=== PATIENT | male | born 1980 | race Caucasian/White ===

== ENCOUNTER 2017-03-08 16:41 | Inpatient (IN) | payer OTHER ==
[~2017-03-08] VITALS: Ht 172.7 cm; Wt 105.0 kg
[2017-03-08 16:43] VITALS: Ht 172.7 cm; Wt 105.0 kg
--- NOTE | 2017-03-08 16:52 | ERD ---
ER Documentation Chief Complaint Chief Complaint BIB EMS for c/o L leg pain; denies trauma HPI The patient is a 36-year-old male, presenting with severe low back pain for 1 day, worse tonight, unable to ambulate. He denies fecal/urinary incontinence, fever, neck pain, chest pain, nausea, vomiting with his, diarrhea, constipation. He does not have any history of IV drug abuse, smoke and drinks socially Past medical history: Diabetes mellitus Past surgical history: None ROS All systems reviewed and are negative except as per history of present illness. Allergies Allergies: Coded Allergies: No Known Allergy (Unverified , 03/08/17) Physical Exam Vitals Vital Signs Date Time Temp Pulse Resp B/P Pulse Ox O2 Delivery O2 Flow Rate FiO2 03/08/17 18:45 98.1 96 20 142/77 100 Room Air 03/08/17 16:43 98.1 103 19 138/81 100 Physical Exam Const: No acute distress.in pain Head: Atraumatic. Eyes: Normal Conjunctiva. ENT: Normal External Ears, Nose and Mouth. Neck: Full range of motion. No meningismus. Resp: Clear to auscultation bilaterally. Cardio: Regular rate and rhythm. Abd: Soft, non distended, normal bowel sounds, non tender. Skin: No petechiae or rashes. Back: No midline or flank tenderness. Ext: No cyanosis, or edema. Neur: Awake and alert. Limited due to his condition, positive for straight leg raising test Psych: Normal Mood and Affect. Result Diagram: 03/08/17 1700 03/08/17 1700 Results 24 hrs Laboratory Tests Test 03/08/17 17:00 03/08/17 18:00 03/08/17 18:03 White Blood Count 12.510^3/ul Red Blood Count 6.1510^6/ul Hemoglobin 17.6g/dl Hematocrit 50.4% Mean Corpuscular Volume 82.0fl Mean Corpuscular Hemoglobin 28.6pg Mean Corpuscular Hemoglobin Concent 34.9g/dl Red Cell Distribution Width 12.5% Platelet Count 77022^3/UL Mean Platelet Volume 10.0fl Neutrophils % 67.9% Lymphocytes % 19.2% Monocytes % 7.1% Eosinophils % 4.7% Basophils % 0.8% Nucleated Red Blood Cells % 0.0/100WBC Neutrophils # 8.510^3/ul Lymphocytes # 2.410^3/ul Monocytes # 0.910^3/ul Eosinophils # 0.610^3/ul Basophils # 0.110^3/ul Nucleated Red Blood Cells # 0.010^3/ul Sodium Level 136mmol/L Potassium Level 4.4mmol/L Chloride Level 101mmol/L Carbon Dioxide Level 24mmol/L Anion Gap 15 Blood Urea Nitrogen 11mg/dl Creatinine 0.75mg/dl Glucose Level 265mg/dl Calcium Level 9.4mg/dl Ethyl Alcohol Level < 10.0mg/dl Urine Opiates Screen Positive Urine Barbiturates Negative Urine Amphetamines Screen POSITIVE Urine Benzodiazepines Screen Negative Urine Cocaine Screen Positive Urine Cannabinoids Negative Bedside Urine pH (LAB) 6.0 Bedside Urine Protein (LAB) 2+ Bedside Urine Glucose (UA) 0.50% Bedside Urine Ketones (LAB) Trace Bedside Urine Blood Trace-lysed Bedside Urine Nitrite (LAB) Negative Bedside Urine Leukocyte Esterase (L Negative Current Medications Medications (Trade) Dose Ordered Sig/Shimon Route PRN Reason Start Time Stop Time Status Last Admin Dose Admin Hydromorphone HCl (Dilaudid) 1 mg ONCE STAT IV 03/08/17 16:55 03/08/17 16:57 DC 03/08/17 17:08 Ketorolac Tromethamine (Toradol) 30 mg ONCE STAT IV 03/08/17 17:27 03/08/17 17:28 DC 03/08/17 17:33 Hydromorphone HCl (Dilaudid) 1 mg ONCE STAT IV 03/08/17 18:11 03/08/17 18:13 DC 03/08/17 18:43 Procedures/[place] [address] Radiology Main Line: [phone] DIAGNOSTIC IMAGING REPORT Patient: CLAYTON BRUNO : 1980 Age: 36 Sex: M MR #: [id number] DOS: 03/08/17 1655 Ordering MD: ISAAC VERGARA MD Location: E/R Room/Bed: PROCEDURE: CT lumbar spine without contrast CLINICAL INDICATION: Severe low back and left hip pain. TECHNIQUE: CT scan of the lumbar spine was performed on a high-resolution multi-detector CT scanner. No IV contrast was administered. Coronal and sagittal reformatted images were obtained from the axial source images. Images were reviewed on a high-resolution PACS workstation. Exam CTDI = 41.97 mGy and the DLP = 1136.61 mGy-cm. DICOM images are available. One or more of the following dose reduction techniques were used: Automated exposure control. Adjustment of the mA and/or kV according to patient size. Use of iterative reconstruction technique. COMPARISON: None available FINDINGS: There is normal lumbar lordosis. Alignment remains intact. No acute fracture or dislocation is seen. There is chronic-appearing minimal anterior height loss of L1 and L2. There is no retropulsion. The remainder of the vertebral body heights are maintained. Posterior elements structures are intact. The paraspinous soft tissues are unremarkable. No mass, hematoma, or other soft tissue abnormality is seen. T12-L1 through L2-L3: The disc heights are maintained. The central canal and bilateral neural foramina are adequately patent. L3-L4: The disc height is maintained. There is mild disc bulge. The central canal and bilateral neural foramina are adequately patent. L4-L5: There is mild disc height loss. There is a prominent central disc protrusion indenting the ventral thecal sac with mild central canal stenosis. There is mild facet arthropathy. There is mild bilateral neural foraminal stenosis. L5-S1: There is mild disc height loss. Left foraminal/extraforaminal disc extrusion with probable impingement on the traversing left S1 nerve root. There is severe left neural foraminal stenosis with probable impingement on the exiting left L5 nerve root. IMPRESSION: 1. No acute fracture or traumatic malalignment. 2. Left foraminal/extraforaminal disc extrusion at L5-S1 with probable impingement on the exiting left L5 and traversing left S1 nerve roots. 3. Mild discogenic disease at L4-L5. RPTAT: HHO .Sharmin Fisher MD, Date Time Electronically viewed and signed by .Sharmin Fisher MD, on 03/08/2017 18:01 .O/ CC: ISAAC VERGARA MD MEDICAL MAKING DECISION: The patient is 36-year-old male, presenting with acute intractable back pain due to disc disease. He was treated with Dilaudid 1 mg IV 2 and Toradol 30 IV 1 for pain with good response. However he is unable to ambulate independently. The differential diagnoses considered include but are not limited to caudal equina syndrome, spinal abscess, DJD, diskitis, lumbar radiculopathy. Departure Diagnosis: Primary Impression: Intractable back pain Condition: Stable Comments I discussed the findings with the patient. I discussed the patient with the on- call hospitalist Dr. Turcios at 6:50 PM for admission and MRI evaluation. who was made aware of the lab, the treatment, the patient condition. The patient is admitted to [facility] Disclaimer: Inadvertent spelling and grammatical errors are likely due to EHR/ dictation software use and do not reflect on the overall quality of patient care. Also, please note that the electronic time recorded on this note does not necessarily reflect the actual time of the patient encounter. ISAAC VERGARA MD Mar 08, 2017 16:52
[2017-03-08] MEDS ORDERED: HYDROmorphONE 1 MG/ML SYG IV STA ×2 (16:55→18:11)
[2017-03-08 17:15] LABS: BASOPHIL # 0.1 10^3/ul (0.0-0.1); BASOPHILS % 0.8 % (0.0-2.0); EOSINOPHILS # 0.6 10^3/ul (0.0-0.5); EOSINOPHILS % 4.7 % (0.0-7.0); HEMATOCRIT 50.4 % (42.0-52.0); HEMOGLOBIN 17.6 g/dl (14.0-18.0); LYMPHOCYTES # 2.4 10^3/ul (0.8-2.9); LYMPHOCYTES % 19.2 % (15.0-51.0); MEAN CORPUSCULAR HEMOGLOBIN 28.6 pg (29.0-33.0); MEAN CORPUSCULAR HGB CONC 34.9 g/dl (32.0-37.0); MONOCYTE # 0.9 10^3/ul (0.3-0.9); MONOCYTES % 7.1 % (0.0-11.0); NEUTROPHIL # 8.5 10^3/ul (1.6-7.5); NEUTROPHILS % 67.9 % (39.0-77.0); PLATELET COUNT 373 10^3/UL (140-415); RED BLOOD COUNT 6.15 10^6/ul (4.70-6.10); RED CELL DISTRIBUTION WIDTH 12.5 % (11.5-14.5); WHITE BLOOD COUNT 12.5 10^3/ul (4.8-10.8)
[2017-03-08] MEDS ORDERED: KETOROLAC 30 MG INJ IV STA (17:27)
[2017-03-08 17:35] LABS: ANION GAP 15 (8-16); BLOOD UREA NITROGEN 11 mg/dl (7-20); CALCIUM 9.4 mg/dl (8.4-10.2); CARBON DIOXIDE 24 mmol/L (21-31); CHLORIDE 101 mmol/L (97-110); CREATININE 0.75 mg/dl (0.61-1.24); GLUCOSE 265 mg/dl (70-220); POTASSIUM 4.4 mmol/L (3.5-5.1); SODIUM 136 mmol/L (135-144)
[2017-03-08 17:41] LABS: ETHANOL < 10.0 mg/dl
--- NOTE | 2017-03-08 18:02 | RADRPT ---
PROCEDURE: CT lumbar spine without contrast CLINICAL INDICATION: Severe low back and left hip pain. TECHNIQUE: CT scan of the lumbar spine was performed on a high-resolution multi-detector CT scanne r. No IV contrast was administered. Coronal and sagittal reformatted images were obtained from the axial source images. Images were reviewed on a high-resolution PACS workstation. Exam CTDI = 41.97 mGy and the DLP = 1136.61 mGy-cm. DICOM images are available. One or more of the following dose reduction techniques were used: Automated exposure control. Adjustment of the mA and/or kV according to patient size. Use of iterative reconstruction technique. COMPARISON: None available FINDINGS: There is normal lumbar lordosis. Alignment remains intact. No acute fracture or dislocation is see n. There is chronic-appearing minimal anterior height loss of L1 and L2. There is no retropulsion. The remainder of the vertebral body heights are maintained. Posterior elements structures are intact . The paraspinous soft tissues are unremarkable. No mass, hematoma, or other soft tissue abnormalit y is seen. T12-L1 through L2-L3: The disc heights are maintained. The central canal and bilateral neural lori hai are adequately patent. L3-L4: The disc height is maintained. There is mild disc bulge. The central canal and bilateral boris ral foramina are adequately patent. L4-L5: There is mild disc height loss. There is a prominent central disc protrusion indenting the v entral thecal sac with mild central canal stenosis. There is mild facet arthropathy. There is mild b ilateral neural foraminal stenosis. L5-S1: There is mild disc height loss. Left foraminal/extraforaminal disc extrusion with probable i mpingement on the traversing left S1 nerve root. There is severe left neural foraminal stenosis with probable impingement on the exiting left L5 nerve root. IMPRESSION: 1. No acute fracture or traumatic malalignment. 2. Left foraminal/extraforaminal disc extrusion at L5-S1 with probable impingement on the exiting le ft L5 and traversing left S1 nerve roots. 3. Mild discogenic disease at L4-L5. RPTAT: MORRIS .Sharmin Fisher MD, Date Time Electronically viewed and signed by .Sharmin Fisher MD, MD on 03/08/2017 18:01 .O/
[2017-03-08 18:05] LABS: URINE BLOOD (Dip) POC Trace-lysed (NEGATIVE)
[2017-03-08 18:39] LABS: BARBITURATES Negative (NEGATIVE); BENZODIAZEPINES Negative (NEGATIVE); CANNABINOIDS Negative (NEGATIVE); COCAINE Positive (NEGATIVE); OPIATES Positive (NEGATIVE)
[2017-03-08 21:04] VITALS: TEMP 98.1
[2017-03-08 21:26] VITALS: BP 156/89; RESP 20
[2017-03-08] MEDS ORDERED: FENTAnyl 50 MCG/ML VIAL IV ONE (21:30)
[2017-03-08 21:46] VITALS: BP 154/80; PULSE 95; RESP 20
[2017-03-08] MEDS ORDERED: DEXTROSE 50% 50 ML SYRINGE IV PRN ×2 (22:15)
[2017-03-08] MEDS ORDERED: GLUCAGON 1 MG INJ IM PRN (22:15)
[2017-03-08] MEDS ORDERED: GLUCOSE GEL 15 GRAM TUBE BUCCAL PRN (22:15)
[2017-03-08] MEDS ORDERED: GLUCOSE GEL 15 GRAM TUBE PO PRN ×2 (22:15)
[2017-03-09] MEDS ORDERED: HYDROmorphONE 1 MG/ML SYG IV STA (01:49)
[2017-03-09] MEDS: INSULIN ASPART [NOVOLOG] 3 ML PEN SC SCH ×7 (01:56→21:00)
[2017-03-09 02:01] VITALS: BP 142/85; PULSE 90; RESP 21
[2017-03-09] MEDS: ACCU-CHEK XX SCH (02:08)
[2017-03-09] MEDS ORDERED: DEXAMETHASONE 4 MG/ML 1 ML INJ IV STA (03:33)
[2017-03-09 05:45] LABS: BASOPHIL # 0.1 10^3/ul (0.0-0.1); EOSINOPHILS # 0.8 10^3/ul (0.0-0.5); EOSINOPHILS % 6.8 % (0.0-7.0); HEMATOCRIT 48.3 % (42.0-52.0); HEMOGLOBIN 16.9 g/dl (14.0-18.0); LYMPHOCYTES # 3.2 10^3/ul (0.8-2.9); LYMPHOCYTES % 28.4 % (15.0-51.0); MEAN CORPUSCULAR HEMOGLOBIN 29.2 pg (29.0-33.0); MEAN CORPUSCULAR VOLUME 83.6 fl (82.0-101.0); MEAN PLATELET VOLUME 10.2 fl (7.4-10.4); NEUTROPHIL # 6.2 10^3/ul (1.6-7.5); NEUTROPHILS % 54.4 % (39.0-77.0); PLATELET COUNT 351 10^3/UL (140-415); RED BLOOD COUNT 5.78 10^6/ul (4.70-6.10); RED CELL DISTRIBUTION WIDTH 12.9 % (11.5-14.5); WHITE BLOOD COUNT 11.4 10^3/ul (4.8-10.8)
[2017-03-09] MEDS ORDERED: HYDROmorphONE 2 MG/ML SYG IV STA (05:46)
[2017-03-09] MEDS ORDERED: HYDROmorphONE 2 MG/ML SYG ONE (05:49)
[2017-03-09 06:20] LABS: ALBUMIN 3.7 g/dl (3.3-4.9); ALBUMIN/GLOBULIN RATIO 1.15; BILIRUBIN,INDIRECT 0.4 mg/dl (0-1.1); BILIRUBIN,TOTAL 0.4 mg/dl (0.2-1.3); CALCIUM 9.2 mg/dl (8.4-10.2); CREATININE 0.87 mg/dl (0.61-1.24); POTASSIUM 4.2 mmol/L (3.5-5.1); TOTAL PROTEIN 6.9 g/dl (6.1-8.1)
[2017-03-09 07:49] VITALS: BP 169/101; RESP 18
--- NOTE | 2017-03-09 08:50 | HP ---
Date/Time of Note Date/Time of Note DATE: 03/09/17 TIME: 08:45 Assessment/Plan VTE Prophylaxis VTE Prophylaxis Intervention: SCD's Lines/Catheters IV Catheter Type (from Nrsg): Saline Lock Assessment/Plan Assessment/Plan 1. Disc extrusion at L5-S1 with probable impingement -Decadron -Neurosurgery consult -Pain management 2. Back pain, secondary to above -See #1 3. Diabetes, - check A1c -Insulin while in-house HPI/ROS Admit Date/Time Admit Date/Time Mar 08, 2017 at 18:55 Hx of Present Illness This is a 36-year-old male with a history of diabetes who presented to the ER complaining of back pain. Pain is started today. It was of sudden onset, left- sided and it radiates down his left leg. Denied trauma or falling down. Denied bladder or bowel incontinence. Lumbar CT showed left foraminal/extraforaminal disc extrusion at L5-S1 with probable impingement on the exiting left L5 and traversing left S1 nerve roots. PMH/Family/Social Social History Smoking Status: Light tobacco smoker Exam/Review of Systems Vital Signs Vitals Vital Signs Date Time Temp Pulse Resp B/P Pulse Ox O2 Delivery O2 Flow Rate FiO2 03/09/17 07:49 98.0 81 18 169/101 98 03/09/17 02:01 Room Air Intake and Output 03/08/17 03/08/17 03/09/17 14:59 22:59 06:59 Intake Total 480 ml Output Total 800 ml Balance -320 ml Exam Constitutional: alert, distress, oriented Head: atraumatic, normocephalic Eyes: EOMI, PERRL Respiratory: clear to auscultation, normal air movement Cardiovascular: nl pulses, regular rate and rhythm Gastrointestinal: non-tender, soft Musculoskeletal: other (Tenderness in the lower back. No obvious deformity) Extremities: normal pulses Labs Result Diagram: 03/09/1743403/09/17434 Medications Medications Current Medications Diagnostic Test (Pha) (Accu-Chek) 1 ea 02 XX Last administered on 03/09/17t 02 :08; Admin Dose 1 EA; Start 03/09/17 at 02:00 Miscellaneous Information 1 ea NOTE XX ; Start 03/08/17 at 22:15 Glucose (Glutose) 15 gm Q15M PRN PO DECREASED GLUCOSE; Start 03/08/17 at 22:15 Glucose (Glutose) 22.5 gm Q15M PRN PO DECREASED GLUCOSE; Start 03/08/17 at 22: 15 Dextrose (D50w Syringe) 25 ml Q15M PRN IV DECREASED GLUCOSE; Start 03/08/17 at 22:15 Dextrose (D50w Syringe) 50 ml Q15M PRN IV DECREASED GLUCOSE; Start 03/08/17 at 22:15 Glucagon (Glucagen) 1 mg Q15M PRN IM DECREASED GLUCOSE; Start 03/08/17 at 22: 15 Glucose (Glutose) 15 gm Q15M PRN BUCCAL DECREASED GLUCOSE; Start 03/08/17 at 22:15 Dexamethasone (Decadron) 6 mg Q6 IV ; Start 03/09/17 at 09:00 MOON MONROE MD Mar 09, 2017 08:50
[2017-03-09] MEDS: DEXAMETHASONE 4 MG/ML 1 ML INJ IV SCH ×2 (09:00→12:09)
[2017-03-09] MEDS: HYDROmorphONE 2 MG/ML SYG IV PRN ×5 (09:36→23:56)
--- NOTE | 2017-03-09 09:57 | PN ---
Date/Time of Note Date/Time of Note DATE: 03/09/17 TIME: 09:54 Assessment/Plan VTE Prophylaxis VTE Prophylaxis Intervention: SCD's Lines/Catheters IV Catheter Type (from Nrsg): Saline Lock Assessment/Plan Chief Complaint/Hosp Course Assessment and plan 1. Back pain secondary to left foraminal/extra foraminal disc extrusion at L5- S1. There is suggestion of possible impingement. Will get neurosurgeon to follow. Will also get an MRI of the lumbar spine. On Decadron for now. 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 Diabetes. A1c seen at 9.9. Will get breastfeeding educator to follow. Place on insulin for now. 3. Obesity. Weight reduction was advised. Disposition plan: Plan for MRI of the lumbar spine. Neurosurgeon evaluation pending. Discussed plan of care with Dr. Naranjo Problems: Subjective 24 Hr Interval Summary Free Text/Dictation Appears to be in moderate pain at this time due to lumbar pain. Exam/Review of Systems Vital Signs Vitals Vital Signs Date Time Temp Pulse Resp B/P Pulse Ox O2 Delivery O2 Flow Rate FiO2 03/09/17 07:49 98.0 81 18 169/101 98 03/09/17 02:01 Room Air Intake and Output 03/08/17 03/08/17 03/09/17 15:00 23:00 07:00 Intake Total 480 ml Output Total 800 ml Balance -320 ml Exam Constitutional: alert, obese, oriented Psych: anxiety Head: normocephalic Eyes: nl conjunctiva Neck: non-tender, supple Respiratory: clear to auscultation, normal air movement Cardiovascular: regular rate and rhythm Gastrointestinal: non-tender, soft Musculoskeletal: No swelling Neurological: nl mental status, nl speech Skin: nl turgor Results Result Diagram: 03/09/17 0435 03/09/17 0435 Results 24 hrs Laboratory Tests Test 03/08/17 17:00 03/08/17 18:00 03/08/17 18:03 03/08/17 21:42 White Blood Count 12.5 H Red Blood Count 6.15 H Hemoglobin 17.6 Hematocrit 50.4 Mean Corpuscular Volume 82.0 Mean Corpuscular Hemoglobin 28.6 L Mean Corpuscular Hemoglobin Concent 34.9 Red Cell Distribution Width 12.5 Platelet Count 373 Mean Platelet Volume 10.0 Neutrophils % 67.9 Lymphocytes % 19.2 Monocytes % 7.1 Eosinophils % 4.7 Basophils % 0.8 Nucleated Red Blood Cells % 0.0 Neutrophils # 8.5 H Lymphocytes # 2.4 Monocytes # 0.9 Eosinophils # 0.6 H Basophils # 0.1 Nucleated Red Blood Cells # 0.0 Sodium Level 136 Potassium Level 4.4 Chloride Level 101 Carbon Dioxide Level 24 Anion Gap 15 Blood Urea Nitrogen 11 Creatinine 0.75 Glucose Level 265 H Calcium Level 9.4 Ethyl Alcohol Level < 10.0 Urine Opiates Screen Positive Urine Barbiturates Negative Urine Amphetamines Screen POSITIVE Urine Benzodiazepines Screen Negative Urine Cocaine Screen Positive Urine Cannabinoids Negative Bedside Urine pH (LAB) 6.0 Bedside Urine Protein (LAB) 2+ H Bedside Urine Glucose (UA) 0.50% H Bedside Urine Ketones (LAB) Trace H Bedside Urine Blood Trace-lysed H Bedside Urine Nitrite (LAB) Negative Bedside Urine Leukocyte Esterase (L Negative Bedside Glucose 272 H Test 03/09/17 01:48 03/09/17 04:35 03/09/17 08:04 Bedside Glucose 204 249 H White Blood Count 11.4 H Red Blood Count 5.78 Hemoglobin 16.9 Hematocrit 48.3 Mean Corpuscular Volume 83.6 Mean Corpuscular Hemoglobin 29.2 Mean Corpuscular Hemoglobin Concent 35.0 Red Cell Distribution Width 12.9 Platelet Count 351 Mean Platelet Volume 10.2 Neutrophils % 54.4 Lymphocytes % 28.4 Monocytes % 9.0 Eosinophils % 6.8 Basophils % 1.0 Nucleated Red Blood Cells % 0.0 Neutrophils # 6.2 Lymphocytes # 3.2 H Monocytes # 1.0 H Eosinophils # 0.8 H Basophils # 0.1 Nucleated Red Blood Cells # 0.0 Sodium Level 139 Potassium Level 4.2 Chloride Level 104 Carbon Dioxide Level 26 Anion Gap 13 Blood Urea Nitrogen 15 Creatinine 0.87 Glucose Level 212 Hemoglobin A1c 9.9 H Calcium Level 9.2 Total Bilirubin 0.4 Direct Bilirubin 0.00 Indirect Bilirubin 0.4 Aspartate Amino Transf (AST/SGOT) 19 Alanine Aminotransferase (ALT/SGPT) 32 Alkaline Phosphatase 74 Total Protein 6.9 Albumin 3.7 Globulin 3.20 Albumin/Globulin Ratio 1.15 Medications Medications Current Medications Diagnostic Test (Pha) (Accu-Chek) 1 ea 02 XX Last administered on 03/09/17t 02 :08; Admin Dose 1 EA; Start 03/09/17 at 02:00 Miscellaneous Information 1 ea NOTE XX ; Start 03/08/17 at 22:15 Glucose (Glutose) 15 gm Q15M PRN PO DECREASED GLUCOSE; Start 03/08/17 at 22:15 Glucose (Glutose) 22.5 gm Q15M PRN PO DECREASED GLUCOSE; Start 03/08/17 at 22: 15 Dextrose (D50w Syringe) 25 ml Q15M PRN IV DECREASED GLUCOSE; Start 03/08/17 at 22:15 Dextrose (D50w Syringe) 50 ml Q15M PRN IV DECREASED GLUCOSE; Start 03/08/17 at 22:15 Glucagon (Glucagen) 1 mg Q15M PRN IM DECREASED GLUCOSE; Start 03/08/17 at 22: 15 Glucose (Glutose) 15 gm Q15M PRN BUCCAL DECREASED GLUCOSE; Start 03/08/17 at 22:15 Dexamethasone (Decadron) 6 mg Q6 IV ; Start 03/09/17 at 09:00 Hydromorphone HCl (Dilaudid) 1.5 mg Q3H PRN IV PAIN Last administered on t 09:36; Admin Dose 1.5 MG; Start 03/09/17 at 09:00 Insulin Glargine (Lantus) 16 unit DAILY@08 SC ; Start 03/10/17 at 08:00 Methocarbamol (Robaxin) 500 mg TID PO ; Start 03/09/17 at 13:00 Acetaminophen/ Hydrocodone Bitart ([place] (5/325)) 1 tab Q4H PRN PO pain; Start 03/09/17 at 10:00 Acetaminophen/ Hydrocodone Bitart ([place] (5/325)) 2 tab Q4H PRN PO pain; Start 03/09/17 at 10:00 Gabapentin (Neurontin) 300 mg TID PO ; Start 03/09/17 at 13:00 CHIVO DUARTE Mar 09, 2017 09:57
[2017-03-09] MEDS ORDERED: HYDROCODONE/APAP (5/325) TAB PO PRN (10:00)
[2017-03-09 10:33] VITALS: BP 142/98; PULSE 80
[2017-03-09] MEDS ORDERED: METHYLPREDNISOLONE (MEDROL) DOSE PACK PO SCH (12:00)
--- NOTE | 2017-03-09 12:26 | RADRPT ---
PROCEDURE: MRI OF THE LUMBAR SPINE. CLINICAL INDICATION: Low back pain with trouble walking. TECHNIQUE: Multiple MRI images were obtained utilizing multiple sequences in sagittal and axial edyta horace. Images were interpreted on high-resolution PACS system. No contrast was administered. COMPARISON: CT from 03/08/2017 FINDINGS: There is minimal anterior wedging of the L1 and L2 vertebral bodies, unchanged without an acute frac ture. The remaining lumbar vertebral body heights are preserved. Bone marrow signal is within normal limits. Alignment is intact. The conus ends at L1. The distal cord is normal in signal and caliber. There is no evidence of frank chnoiditis. Paraspinal musculature is unremarkable. T12-L1: Normal disc height and signal. No annular bulge, central canal narrowing, or neural foramina l narrowing. L1-L2: Normal disc height and signal. No annular bulge, central canal narrowing, or neural foramina l narrowing. L2-L3: Normal disc height and signal. No annular bulge, central canal narrowing, or neural foraminal narrowing. L3-L4: Normal disc height and signal. No annular bulge, central canal narrowing, or neural foraminal narrowing. L4-L5: Mild loss of disc height with disc desiccation. Broad 4 - 5 mm central to right posterolatera l disc protrusion with narrowing of the right greater than left lateral recesses and moderate centra l canal narrowing. Mild bilateral neural foraminal narrowing. Mild bilateral facet arthropathy. L5-S1: Mild loss of disc height with disc desiccation. Broad 5 - 6 mm AP left posterolateral to far left lateral disc extrusion with slight superior migration resulting in narrowing of the left latera l recess, contact of the left S1 nerve root, as well as compression and posterior displacement of th e left L5 nerve root with severe left neural foraminal narrowing. A high intensity zone is also visu alized within the left aspect of the disc. Mild central canal narrowing. Mild right neural foraminal narrowing. RPTAT: EE IMPRESSION: 1. Left posterolateral to far left lateral 5-6 mm disc extrusion at L5-S1 with slight superior migra tion resulting in compression and posterior displacement of the left L5 nerve root with severe left neural foraminal narrowing as well as slight narrowing of the left lateral recess and contact of the left S1 nerve root. 2. Mild degenerative disc disease at L4-L5 with a broad 4-5 mm central to right posterolateral disc protrusion with narrowing of the right greater than left lateral recesses and moderate central canal narrowing. .Liss Stanley MD, Date Time Electronically viewed and signed by .Liss Stanley MD, on 03/09/2017 12:25 .T/
[2017-03-09] MEDS ORDERED: METHYLPREDNISOLONE 4 MG TAB PO SCH ×2 (12:30→14:00)
[2017-03-09] MEDS: GABAPENTIN 300 MG CAP PO SCH ×2 (12:56→21:04)
[2017-03-09] MEDS: METHOCARBAMOL 500 MG TAB PO SCH ×2 (12:56→21:04)
[2017-03-09] MEDS: IBUPROFEN 800 MG TAB PO SCH ×2 (14:07→21:04)
[2017-03-09 14:15] VITALS: BP 197/110; RESP 18
[2017-03-09] MEDS: HYDROCODONE/APAP (5/325) TAB PO PRN ×2 (15:12→19:40)
[2017-03-09 16:57] VITALS: BP 156/78; PULSE 88
[2017-03-09 19:29] VITALS: BP 140/84; RESP 18
[2017-03-09] MEDS ORDERED: INSULIN ASPART [NOVOLOG] 3 ML PEN SC ONE (21:30)
[2017-03-10 01:54] VITALS: BP 112/65; RESP 18
[2017-03-10] MEDS: ACCU-CHEK XX SCH (02:27)
[2017-03-10] MEDS ORDERED: INSULIN ASPART [NOVOLOG] 3 ML PEN SC ONE (02:30)
[2017-03-10] MEDS: HYDROmorphONE 2 MG/ML SYG IV PRN ×2 (03:00→21:18)
[2017-03-10 06:43] LABS: BASOPHIL # 0.1 10^3/ul (0.0-0.1); BASOPHILS % 0.3 % (0.0-2.0); EOSINOPHILS % 0.1 % (0.0-7.0); HEMATOCRIT 51.5 % (42.0-52.0); HEMOGLOBIN 17.4 g/dl (14.0-18.0); LYMPHOCYTES # 1.3 10^3/ul (0.8-2.9); LYMPHOCYTES % 6.7 % (15.0-51.0); MEAN CORPUSCULAR HEMOGLOBIN 28.5 pg (29.0-33.0); MEAN CORPUSCULAR HGB CONC 33.8 g/dl (32.0-37.0); MEAN CORPUSCULAR VOLUME 84.3 fl (82.0-101.0); MEAN PLATELET VOLUME 10.6 fl (7.4-10.4); MONOCYTE # 1.2 10^3/ul (0.3-0.9); MONOCYTES % 6.2 % (0.0-11.0); NEUTROPHIL # 16.9 10^3/ul (1.6-7.5); NEUTROPHILS % 85.7 % (39.0-77.0); PLATELET COUNT 419 10^3/UL (140-415); RED BLOOD COUNT 6.11 10^6/ul (4.70-6.10); RED CELL DISTRIBUTION WIDTH 12.4 % (11.5-14.5); WHITE BLOOD COUNT 19.7 10^3/ul (4.8-10.8)
[2017-03-10 07:02] LABS: CALCIUM 9.4 mg/dl (8.4-10.2); CREATININE 0.96 mg/dl (0.61-1.24); POTASSIUM 4.3 mmol/L (3.5-5.1)
[2017-03-10] MEDS: HYDROCODONE/APAP (5/325) TAB PO PRN ×2 (07:02→11:59)
[2017-03-10] MEDS ORDERED: METHYLPREDNISOLONE 4 MG TAB PO SCH ×5 (07:30→21:00)
[2017-03-10 07:40] VITALS: BP 137/92; RESP 18
[2017-03-10] MEDS: METHYLPREDNISOLONE 4 MG TAB PO SCH ×3 (07:59→18:41)
[2017-03-10] MEDS ORDERED: INSULIN GLARGINE [LANtus] 3 ML PEN SC SCH ×2 (08:00)
[2017-03-10] MEDS: INSULIN ASPART [NOVOLOG] 3 ML PEN SC SCH ×7 (08:04→21:25)
[2017-03-10] MEDS: IBUPROFEN 800 MG TAB PO SCH ×3 (08:05→22:10)
[2017-03-10] MEDS: METHOCARBAMOL 500 MG TAB PO SCH ×3 (08:05→22:10)
[2017-03-10] MEDS: GABAPENTIN 300 MG CAP PO SCH ×3 (08:05→21:24)
--- NOTE | 2017-03-10 11:49 | PN ---
Date/Time of Note Date/Time of Note DATE: 03/10/17 TIME: 11:48 Assessment/Plan VTE Prophylaxis VTE Prophylaxis Intervention: SCD's Lines/Catheters IV Catheter Type (from Nrs): Saline Lock Assessment/Plan Chief Complaint/Hosp Course 1. Low back pain. Lumbar spine MRI showing left posterolateral lateral 5-6 mm disc extrusion at L5-S1 with slight superior migration resulting in compression and posterior displacement of the L5 nerve root with severe left neural foraminal narrowing as well as narrowing of the left lateral recess and contact of the left S1 nerve root. Status post evaluation by neurosurgery. The patient was started on tapering dose of steroids. Continue pain control. No plan for any surgical intervention. 2. Type 2 diabetes mellitus. Hemoglobin A1c 9.9. Continue sliding scale insulin along with basal insulin. 3. Substance abuse. Urine drug screen positive for amphetamines and cocaine. Cessation advised. 4. Leukocytosis. Most probably steroid induced. Monitor. 5. Obesity. BMI of 35.2 kg/m. Weight reduction advised. 6. Fluids, electrolytes, and nutrition. Carbohydrate controlled diet. 7. DVT prophylaxis. Bilateral sequential compression devices. 8. Plan. Continue pain control. Continue physical therapy. Await improvement of the patient's symptoms before the patient can be discharged. Case discussed with Dr. Sawyer. Problems: Subjective 24 Hr Interval Summary Free Text/Dictation Continues to have lower back pain. Exam/Review of Systems Vital Signs Vitals Vital Signs Date Time Temp Pulse Resp B/P Pulse Ox O2 Delivery O2 Flow Rate FiO2 03/10/17 07:40 97.5 76 18 137/92 94 03/09/17 02:01 Room Air Intake and Output 03/09/17 03/09/17 03/10/17 15:00 23:00 07:00 Intake Total 1400 ml 600 ml Output Total 1000 ml 400 ml Balance 400 ml 200 ml Exam General: Obese, 36 year-old male lying in bed in no apparent distress. HEENT: Normocephalic, atraumatic. Eyes: Anicteric sclerae, conjunctivae clear. ENT: Nasal septum midline, oral mucosa moist. Neck supple, no JVD noticed. Respiratory: Bilaterally clear breath sounds. No use of accessory muscles of respiration. No adventitious breath sounds. Cardiovascular: S1, S2 heard. No murmurs or gallops. Abdomen: Soft, nontender, and nondistended. Bowel sounds positive in all 4 quadrants. Genitourinary: Deferred. Extremities: No cyanosis, no clubbing, no edema. Peripheral pulses palpable. Neurologic: Cranial nerves II through XII grossly intact. The patient is awake, alert, and oriented. Skin: Normal skin turgor. No skin rashes. Results Result Diagram: 03/10/17 0428 03/10/17 0428 Results 24 hrs Laboratory Tests Test 03/09/17 12:04 03/09/17 17:15 03/09/17 20:59 03/10/17 02:17 Bedside Glucose 296 H 289 H 378 H 273 H Test 03/10/17 04:28 03/10/17 07:56 White Blood Count 19.7 #H Red Blood Count 6.11 H Hemoglobin 17.4 Hematocrit 51.5 Mean Corpuscular Volume 84.3 Mean Corpuscular Hemoglobin 28.5 L Mean Corpuscular Hemoglobin Concent 33.8 Red Cell Distribution Width 12.4 Platelet Count 419 H Mean Platelet Volume 10.6 H Neutrophils % 85.7 H Lymphocytes % 6.7 L Monocytes % 6.2 Eosinophils % 0.1 Basophils % 0.3 Nucleated Red Blood Cells % 0.0 Neutrophils # 16.9 H Lymphocytes # 1.3 Monocytes # 1.2 H Eosinophils # 0.0 Basophils # 0.1 Nucleated Red Blood Cells # 0.0 Sodium Level 139 Potassium Level 4.3 Chloride Level 100 Carbon Dioxide Level 24 Anion Gap 19 H Blood Urea Nitrogen 22 H Creatinine 0.96 Glucose Level 204 Calcium Level 9.4 Bedside Glucose 204 Medications Medications Current Medications Diagnostic Test (Pha) (Accu-Chek) 1 ea 02 XX Last administered on 03/10/17t 02 :27; Admin Dose 1 EA; Start 03/09/17 at 02:00 Miscellaneous Information 1 ea NOTE XX ; Start 03/08/17 at 22:15 Glucose (Glutose) 15 gm Q15M PRN PO DECREASED GLUCOSE; Start 03/08/17 at 22:15 Glucose (Glutose) 22.5 gm Q15M PRN PO DECREASED GLUCOSE; Start 03/08/17 at 22: 15 Dextrose (D50w Syringe) 25 ml Q15M PRN IV DECREASED GLUCOSE; Start 03/08/17 at 22:15 Dextrose (D50w Syringe) 50 ml Q15M PRN IV DECREASED GLUCOSE; Start 03/08/17 at 22:15 Glucagon (Glucagen) 1 mg Q15M PRN IM DECREASED GLUCOSE; Start 03/08/17 at 22: 15 Glucose (Glutose) 15 gm Q15M PRN BUCCAL DECREASED GLUCOSE; Start 03/08/17 at 22:15 Hydromorphone HCl (Dilaudid) 1.5 mg Q3H PRN IV PAIN Last administered on 03:00; Admin Dose 1.5 MG; Start 03/09/17 at 09:00 Methocarbamol (Robaxin) 500 mg TID PO Last administered on 03/10/17 08:05; Admin Dose 500 MG; Start 03/09/17 at 13:00 Acetaminophen/ Hydrocodone Bitart ([place] (5/325)) 1 tab Q4H PRN PO pain; Start 03/09/17 at 10:00 Acetaminophen/ Hydrocodone Bitart ([place] (5/325)) 2 tab Q4H PRN PO pain Last administered on 03/10/17 07:02; Admin Dose 2 TAB; Start 03/09/17 at 10:00 Gabapentin (Neurontin) 300 mg TID PO Last administered on 03/10/17 08:05; Admin Dose 300 MG; Start 03/09/17 at 13:00 Ibuprofen (Motrin) 800 mg TID PO Last administered on 03/10/17 08:05; Admin Dose 800 MG; Start 03/09/17 at 13:00 Methylprednisolone (Medrol) 8 mg HS PO ; Start 03/10/17 at 21:00; Stop at 21:01 Methylprednisolone (Medrol) 4 mg HS PO ; Start 03/11/17 at 21:00; Stop at 21:01 Insulin Glargine (Lantus) 20 unit DAILY@08 SC Last administered on 03/10/17 08:01; Admin Dose 20 UNIT; Start 03/10/17 at 08:00 EMILY SOTO NP Mar 10, 2017 11:49
[2017-03-10 12:29] LABS: CHOL/HDL RATIO 6.2 RATIO
[2017-03-10 14:00] VITALS: BP 125/71; RESP 18
[2017-03-10 20:08] VITALS: BP 131/77; RESP 17
[2017-03-11] MEDS: HYDROmorphONE 2 MG/ML SYG IV PRN (01:17)
[2017-03-11] MEDS: ACCU-CHEK XX SCH (01:19)
[2017-03-11 02:44] VITALS: BP 142/94; RESP 18
[2017-03-11 05:46] LABS: BASOPHILS % 0.2 % (0.0-2.0); EOSINOPHILS # 0.1 10^3/ul (0.0-0.5); EOSINOPHILS % 0.3 % (0.0-7.0); HEMATOCRIT 46.7 % (42.0-52.0); HEMOGLOBIN 15.8 g/dl (14.0-18.0); LYMPHOCYTES # 1.7 10^3/ul (0.8-2.9); LYMPHOCYTES % 9.6 % (15.0-51.0); MEAN CORPUSCULAR HEMOGLOBIN 28.8 pg (29.0-33.0); MEAN CORPUSCULAR HGB CONC 33.8 g/dl (32.0-37.0); MEAN CORPUSCULAR VOLUME 85.1 fl (82.0-101.0); MEAN PLATELET VOLUME 10.7 fl (7.4-10.4); MONOCYTES % 5.5 % (0.0-11.0); NEUTROPHIL # 14.6 10^3/ul (1.6-7.5); NEUTROPHILS % 83.8 % (39.0-77.0); PLATELET COUNT 353 10^3/UL (140-415); RED BLOOD COUNT 5.49 10^6/ul (4.70-6.10); RED CELL DISTRIBUTION WIDTH 12.4 % (11.5-14.5); WHITE BLOOD COUNT 17.4 10^3/ul (4.8-10.8)
[2017-03-11 05:54] LABS: PHOSPHORUS 4.4 mg/dl (2.5-4.9)
[2017-03-11 05:55] LABS: CALCIUM 8.9 mg/dl (8.4-10.2); CREATININE 0.89 mg/dl (0.61-1.24); POTASSIUM 4.8 mmol/L (3.5-5.1)
[2017-03-11 07:20] VITALS: BP 146/90; RESP 18
[2017-03-11] MEDS: INSULIN ASPART [NOVOLOG] 3 ML PEN SC SCH ×7 (07:57→21:37)
[2017-03-11] MEDS: GABAPENTIN 300 MG CAP PO SCH ×3 (08:00→21:37)
[2017-03-11] MEDS: METHYLPREDNISOLONE 4 MG TAB PO SCH ×3 (08:00→17:47)
[2017-03-11] MEDS: IBUPROFEN 800 MG TAB PO SCH ×3 (08:00→21:37)
[2017-03-11] MEDS: METHOCARBAMOL 500 MG TAB PO SCH ×3 (08:00→21:37)
[2017-03-11] MEDS ORDERED: INSULIN GLARGINE [LANtus] 3 ML PEN SC SCH (08:00)
[2017-03-11] MEDS: HYDROCODONE/APAP (5/325) TAB PO PRN ×4 (09:40→21:47)
--- NOTE | 2017-03-11 10:53 | PN ---
Date/Time of Note Date/Time of Note DATE: 03/11/17 TIME: 10:53 Assessment/Plan VTE Prophylaxis VTE Prophylaxis Intervention: SCD's Lines/Catheters IV C[facility]ter Type (from [facility] Saline Lock Urinary Cath still in place: No Assessment/Plan Chief Complaint/Hosp Course 1. Low back pain. Lumbar spine MRI showing left posterolateral lateral 5-6 mm disc extrusion at L5-S1 with slight superior migration resulting in compression and posterior displacement of the L5 nerve root with severe left neural foraminal narrowing as well as narrowing of the left lateral recess and contact of the left S1 nerve root. S/P evaluation by neurosurgery. The patient was started on tapering dose of steroids. Continue pain control. No plan for any surgical intervention. 2. Type 2 diabetes mellitus. Hemoglobin A1c 9.9. Continue sliding scale insulin along with basal insulin. Adjust insulin to obtain optimal blood sugar control. 3. Substance abuse. Urine drug screen positive for amphetamines and cocaine. Cessation advised. 4. Leukocytosis. Most probably steroid induced. Monitor. 5. Dyslipidemia. Total cholesterol of 270 with LDL of 208. Start the patient on statins particularly since the patient has other comorbidities including obesity and type 2 diabetes mellitus. 6. Obesity. BMI of 35.2 kg/m. Weight reduction advised. 7. Fluids, electrolytes, and nutrition. Carbohydrate controlled diet. 8. DVT prophylaxis. Bilateral sequential compression devices. 9. Plan. Continue pain control. Continue physical therapy. Await improvement of the patient's symptoms before the patient can be discharged. Case discussed with Dr. Sawyer. Problems: Subjective 24 Hr Interval Summary Free Text/Dictation Continues to have low back pain. Exam/Review of Systems Vital Signs Vitals Vital Signs Date Time Temp Pulse Resp B/P Pulse Ox O2 Delivery O2 Flow Rate FiO2 03/11/17 07:20 98.0 64 18 146/90 99 03/09/17 02:01 Room Air Intake and Output 03/10/17 03/10/17 03/11/17 15:00 23:00 07:00 Intake Total 840 ml 400 ml Output Total 600 ml 1000 ml Balance 240 ml -600 ml Exam General: Obese, 36 year-old male lying in bed in no apparent distress. HEENT: Normocephalic, atraumatic. Eyes: Anicteric sclerae, conjunctivae clear. ENT: Nasal septum midline, oral mucosa moist. Neck supple, no JVD noticed. Respiratory: Bilaterally clear breath sounds. No use of accessory muscles of respiration. No adventitious breath sounds. Cardiovascular: S1, S2 heard. No murmurs or gallops. Abdomen: Soft, nontender, and nondistended. Bowel sounds positive in all 4 quadrants. Genitourinary: Deferred. Extremities: No cyanosis, no clubbing, no edema. Peripheral pulses palpable. Neurologic: Cranial nerves II through XII grossly intact. The patient is awake, alert, and oriented. Skin: Normal skin turgor. No skin rashes. Results Result Diagram: 03/11/17 0423 03/11/17422 Results 24 hrs Laboratory Tests Test 03/10/17 12:01 03/10/17 17:04 03/10/17 21:23 03/11/17 01:18 Bedside Glucose 298 H 232 H 289 H 293 H Test 03/11/17 04:23 03/11/17 07:51 White Blood Count 17.4 H Red Blood Count 5.49 Hemoglobin 15.8 Hematocrit 46.7 Mean Corpuscular Volume 85.1 Mean Corpuscular Hemoglobin 28.8 L Mean Corpuscular Hemoglobin Concent 33.8 Red Cell Distribution Width 12.4 Platelet Count 353 Mean Platelet Volume 10.7 H Neutrophils % 83.8 H Lymphocytes % 9.6 L Monocytes % 5.5 Eosinophils % 0.3 Basophils % 0.2 Nucleated Red Blood Cells % 0.0 Neutrophils # 14.6 H Lymphocytes # 1.7 Monocytes # 1.0 H Eosinophils # 0.1 Basophils # 0.0 Nucleated Red Blood Cells # 0.0 Sodium Level 138 Potassium Level 4.8 Chloride Level 104 Carbon Dioxide Level 26 Anion Gap 13 Blood Urea Nitrogen 23 H Creatinine 0.89 Glucose Level 281 H Calcium Level 8.9 Phosphorus Level 4.4 Magnesium Level 2.0 Bedside Glucose 230 H Medications Medications Current Medications Diagnostic Test (Pha) (Accu-Chek) 1 ea 02 XX Last administered on 03/10/17t 02 :27; Admin Dose 1 EA; Start 03/09/17 at 02:00 Miscellaneous Information 1 ea NOTE XX ; Start 03/08/17 at 22:15 Glucose (Glutose) 15 gm Q15M PRN PO DECREASED GLUCOSE; Start 03/08/17 at 22:15 Glucose (Glutose) 22.5 gm Q15M PRN PO DECREASED GLUCOSE; Start 03/08/17 at 22: 15 Dextrose (D50w Syringe) 25 ml Q15M PRN IV DECREASED GLUCOSE; Start 03/08/17 at 22:15 Dextrose (D50w Syringe) 50 ml Q15M PRN IV DECREASED GLUCOSE; Start 03/08/17 at 22:15 Glucagon (Glucagen) 1 mg Q15M PRN IM DECREASED GLUCOSE; Start 03/08/17 at 22: 15 Glucose (Glutose) 15 gm Q15M PRN BUCCAL DECREASED GLUCOSE; Start 03/08/17 at 22:15 Hydromorphone HCl (Dilaudid) 1.5 mg Q3H PRN IV PAIN Last administered on 01:17; Admin Dose 1.5 MG; Start 03/09/17 at 09:00 Methocarbamol (Robaxin) 500 mg TID PO Last administered on 03/11/17 08:00; Admin Dose 500 MG; Start 03/09/17 at 13:00 Acetaminophen/ Hydrocodone Bitart ([place] (5/325)) 1 tab Q4H PRN PO pain; Start 03/09/17 at 10:00 Acetaminophen/ Hydrocodone Bitart ([place] (5/325)) 2 tab Q4H PRN PO pain Last administered on 03/11/17 09:40; Admin Dose 2 TAB; Start 03/09/17 at 10:00 Gabapentin (Neurontin) 300 mg TID PO Last administered on 03/11/17 08:00; Admin Dose 300 MG; Start 03/09/17 at 13:00 Ibuprofen (Motrin) 800 mg TID PO Last administered on 03/11/17 08:00; Admin Dose 800 MG; Start 03/09/17 at 13:00 Methylprednisolone (Medrol) 4 mg HS PO ; Start 03/11/17 at 21:00; Stop at 21:01 Insulin Glargine (Lantus) 22 unit DAILY@08 SC Last administered on 03/11/17 07:55; Admin Dose 22 UNIT; Start 03/11/17 at 08:00 EMILY SOTO NP Mar 11, 2017 10:53
[2017-03-11 14:00] VITALS: BP 140/89; RESP 16
[2017-03-11 20:33] VITALS: BP 128/72; RESP 18
[2017-03-11] MEDS ORDERED: ATORVASTATIN 20 MG TAB PO SCH (21:00)
[2017-03-11] MEDS ORDERED: METHYLPREDNISOLONE 4 MG TAB PO SCH ×2 (21:00)
[2017-03-12] MEDS: ACCU-CHEK XX SCH (02:00)
[2017-03-12 02:04] VITALS: BP 137/82; RESP 17
[2017-03-12] MEDS: HYDROmorphONE 2 MG/ML SYG IV PRN (02:37)
[2017-03-12 05:58] LABS: BASOPHILS % 0.3 % (0.0-2.0); EOSINOPHILS # 0.1 10^3/ul (0.0-0.5); EOSINOPHILS % 0.5 % (0.0-7.0); HEMATOCRIT 45.4 % (42.0-52.0); HEMOGLOBIN 15.6 g/dl (14.0-18.0); LYMPHOCYTES % 15.5 % (15.0-51.0); MEAN CORPUSCULAR HEMOGLOBIN 29.2 pg (29.0-33.0); MEAN CORPUSCULAR HGB CONC 34.4 g/dl (32.0-37.0); MEAN PLATELET VOLUME 10.7 fl (7.4-10.4); MONOCYTES % 7.5 % (0.0-11.0); NEUTROPHIL # 9.9 10^3/ul (1.6-7.5); NEUTROPHILS % 75.7 % (39.0-77.0); PLATELET COUNT 331 10^3/UL (140-415); RED BLOOD COUNT 5.34 10^6/ul (4.70-6.10); RED CELL DISTRIBUTION WIDTH 12.8 % (11.5-14.5); WHITE BLOOD COUNT 13.1 10^3/ul (4.8-10.8)
[2017-03-12 06:34] LABS: CALCIUM 8.8 mg/dl (8.4-10.2); CREATININE 0.77 mg/dl (0.61-1.24); POTASSIUM 4.4 mmol/L (3.5-5.1)
[2017-03-12 06:44] LABS: PHOSPHORUS 3.9 mg/dl (2.5-4.9)
[2017-03-12 07:34] VITALS: BP 163/103; RESP 14
[2017-03-12] MEDS: METHYLPREDNISOLONE 4 MG TAB PO SCH ×2 (07:45→12:09)
[2017-03-12] MEDS ORDERED: INSULIN GLARGINE [LANtus] 3 ML PEN SC SCH (08:00)
[2017-03-12] MEDS: METHOCARBAMOL 500 MG TAB PO SCH ×2 (08:02→12:09)
[2017-03-12] MEDS: IBUPROFEN 800 MG TAB PO SCH ×2 (08:03→12:09)
[2017-03-12] MEDS: GABAPENTIN 300 MG CAP PO SCH ×2 (08:03→12:09)
[2017-03-12] MEDS: INSULIN ASPART [NOVOLOG] 3 ML PEN SC SCH ×4 (08:07→12:12)
--- NOTE | 2017-03-12 09:12 | CONS ---
Date/Time of Note Date/Time of Note DATE: 03/12/17 TIME: 09:04 Assessment/Plan Assessment/Plan Additional Assessment/Plan Please refer to extensive notes from radiology from a pain management standpoint I emphasized to patient that if neurosurgical consult agree conservative care should be given as this is an early finding and according to radiology find is no evidence of pathological findings. He has some complaints of left lower extremity loss of strength. Patient has no warning signs. I had an extensive conversation with and would suggest that we discontinue all opioids metastases intravenously and orally and just switch to anti- inflammatory medications and Neurontin. This information is taken from studies on postoperative management of patient's undergoing orthopedic surgical procedures. He is in agreement to discontinue those medications once again of orthopedic surgery is in agreement will begin to ambulate patient. All of the above is dependent upon neurosurgical evaluation. Consultation Date/Type/Reason Admit Date/Time Mar 08, 2017 at 18:55 Type of Consultation: Pain management Hx of Present Illness This is a 36-year-old gentleman who had sudden onset of low back pain on the day of admission. Patient states the pain radiates down to his left lower extremity to the lower half not into his foot states that his motor function some impaired but is able to walk he does not limp is not falling. Denies any warning signs of thick anesthesia incontinence of urine and feces no systemic symptoms nausea vomiting fevers rigors. 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 Patient does not use or abuse drugs. Describes his pain at 10/10 he is at bedrest he has not had any significant ambulation with pain control medications he is down to 5/10 but he states the pain medications does not last long he is on combination of opioids short acting intravenously and oral opioids also on baclofen Neurontin and at the time I am seeing him physical therapy is in room to evaluate. Patient states his physical function is impaired secondary to pain his mood and sleeping patterns denies nausea vomiting constipation itching mental cloudiness sweating fatigue shortness of breath. Patient does not take any opioids as an outpatient does not appear to be intoxicated he is not unkempt he has not had any motor vehicle accidents he is has never been incarcerated he is not requesting frequent renewals of his medications for pain he is not obtaining opioids as an outpatient as he states. To me. He is not insisting on certain pain control medication he denies history of alcohol or illicit drugs patient states the severity of his pain is severe Social History Smoking Status: Light tobacco smoker Exam/Review of Systems Vital Signs Vitals Vital Signs Date Time Temp Pulse Resp B/P Pulse Ox O2 Delivery O2 Flow Rate FiO2 03/12/17 07:34 98.0 70 14 163/103 99 03/09/17 02:01 Room Air Intake and Output 03/11/17 03/11/17 03/12/17 14:59 22:59 06:59 Intake Total 800 ml 460 ml Balance 800 ml 460 ml Exam Constitutional: alert, No distress, No frail, No non-verbal, No obese, No oriented, No other, No well developed Psych: No anxiety, No confusion, No depression, No nl mood/affect, No no complaints, No other, No suicidal Head: No atraumatic, No hematomas, No lacerations, No normocephalic, No other Eyes: No EOMI, No PERRL, No fundi, disc, No icteric, No nl conjunctiva, No nl lids, No nl sclera, No other Neck: No bruits, No jvd, No masses, No non-tender, No nuchal rigidity, No other , No supple, No thyromegaly Respiratory: No clear to auscultation, No congested cough, No crackles/rales, No diminished breath sounds, No intercostal retraction, No labored breathing, No normal air movement, No other, No respirations, No tactile fremitus, No wheezing Cardiovascular: No S3, No S4, No bruits, No diastolic murmur, No edema, No gallop, No irregular rhythm, No jugular venous distention (JVD), No murmurs/ extra sounds, No nl pulses, No other, No regular rate and rhythm, No rub, No systolic murmur Neurological: other (Range of motion grossly intact bilateral lower extremities ankle the hip. Normal flexion of his bilateral lower extremities ankles and feet he has moderate loss of motor function with extensor hallucis tendon left greater than right negative straight leg sign on the right positive straight leg sign on the left to 40. Sensory function is intact normal flexion and extension of bilateral knees and bilateral hips internal and external rotation intact bilateral hips) Results Result Diagram: 03/12/17 0441 03/12/17 0441 Results 24 hrs Laboratory Tests Test 03/11/17 11:55 03/11/17 17:05 03/11/17 21:34 03/12/17 02:30 Bedside Glucose 201 151 243 H 220 Test 03/12/17 04:41 03/12/17 07:44 White Blood Count 13.1 #H Red Blood Count 5.34 Hemoglobin 15.6 Hematocrit 45.4 Mean Corpuscular Volume 85.0 Mean Corpuscular Hemoglobin 29.2 Mean Corpuscular Hemoglobin Concent 34.4 Red Cell Distribution Width 12.8 Platelet Count 331 Mean Platelet Volume 10.7 H Neutrophils % 75.7 Lymphocytes % 15.5 Monocytes % 7.5 Eosinophils % 0.5 Basophils % 0.3 Nucleated Red Blood Cells % 0.0 Neutrophils # 9.9 H Lymphocytes # 2.0 Monocytes # 1.0 H Eosinophils # 0.1 Basophils # 0.0 Nucleated Red Blood Cells # 0.0 Sodium Level 137 Potassium Level 4.4 Chloride Level 102 Carbon Dioxide Level 26 Anion Gap 13 Blood Urea Nitrogen 20 Creatinine 0.77 Glucose Level 209 Calcium Level 8.8 Phosphorus Level 3.9 Magnesium Level 2.0 Bedside Glucose 183 Medications Medications Current Medications Diagnostic Test (Pha) (Accu-Chek) 1 ea 02 XX Last administered on 03/10/17t 02 :27; Admin Dose 1 EA; Start 03/09/17 at 02:00 Miscellaneous Information 1 ea NOTE XX ; Start 03/08/17 at 22:15 Glucose (Glutose) 15 gm Q15M PRN PO DECREASED GLUCOSE; Start 03/08/17 at 22:15 Glucose (Glutose) 22.5 gm Q15M PRN PO DECREASED GLUCOSE; Start 03/08/17 at 22: 15 Dextrose (D50w Syringe) 25 ml Q15M PRN IV DECREASED GLUCOSE; Start 03/08/17 at 22:15 Dextrose (D50w Syringe) 50 ml Q15M PRN IV DECREASED GLUCOSE; Start 03/08/17 at 22:15 Glucagon (Glucagen) 1 mg Q15M PRN IM DECREASED GLUCOSE; Start 03/08/17 at 22: 15 Glucose (Glutose) 15 gm Q15M PRN BUCCAL DECREASED GLUCOSE; Start 03/08/17 at 22:15 Hydromorphone HCl (Dilaudid) 1.5 mg Q3H PRN IV PAIN Last administered on 02:37; Admin Dose 1.5 MG; Start 03/09/17 at 09:00 Methocarbamol (Robaxin) 500 mg TID PO Last administered on 03/12/17 08:02; Admin Dose 500 MG; Start 03/09/17 at 13:00 Acetaminophen/ Hydrocodone Bitart ([place] (5/325)) 1 tab Q4H PRN PO pain; Start 03/09/17 at 10:00 Acetaminophen/ Hydrocodone Bitart ([place] (5/325)) 2 tab Q4H PRN PO pain Last administered on 03/11/17 21:47; Admin Dose 2 TAB; Start 03/09/17 at 10:00 Gabapentin (Neurontin) 300 mg TID PO Last administered on 03/12/17 08:03; Admin Dose 300 MG; Start 03/09/17 at 13:00 Ibuprofen (Motrin) 800 mg TID PO Last administered on 03/12/17 08:03; Admin Dose 800 MG; Start 03/09/17 at 13:00 Methylprednisolone (Medrol) 4 mg HS PO Last administered on 03/11/17 21:37; Admin Dose 4 MG; Start 03/11/17 at 21:00; Stop 03/13/17 at 21:01 Insulin Glargine (Lantus) 24 unit DAILY@08 SC Last administered on 03/12/17 08:08; Admin Dose 24 UNIT; Start 03/12/17 at 08:00 Atorvastatin Calcium (Lipitor) 20 mg HS PO Last administered on 03/11/17 21: 37; Admin Dose 20 MG; Start 03/11/17 at 21:00 AICHA DEL ROSARIO Mar 12, 2017 09:12
[2017-03-12] MEDS: HYDROCODONE/APAP (5/325) TAB PO PRN (09:31)
--- NOTE | 2017-03-12 12:43 | PDOCDIS ---
Discharge Instructions DIAGNOSIS Discharge Diagnosis Low back pain. CONDITION Patient Condition: Stable HOME CARE INSTRUCTIONS: Diet Instructions: Low Fat /CholesterolSpecial Diet: CARB CONTROL OTHER ORDERS: Other Orders: 1. Take medications as per prescription. 2. Follow-up with your primary care physician in 1 week. 3. Follow a low-cholesterol, carbohydrate controlled diet. 4. Resume activities as tolerated. EMILY SOTO NP Mar 12, 2017 12:43
[2017-03-12] MEDS ORDERED: LANT3I SC (12:46)
[2017-03-12] MEDS ORDERED: METH500T8 PO (12:46)
[2017-03-12] MEDS ORDERED: HYDR-906 PO (12:46)
[2017-03-12] MEDS ORDERED: GABA300C16 PO (12:46)
[2017-03-12] MEDS ORDERED: ATOR20TA65 PO (12:46)
[2017-03-12] MEDS ORDERED: MED4DP PO (12:47)
[2017-03-12] MEDS ORDERED: FAMO-96 PO (12:47)
[2017-03-12] MEDS ORDERED: METF500T4 PO (12:48)
[2017-03-12] MEDS ORDERED: PRED50TA PO (13:52)
[2017-03-12 14:57] VITALS: BP 188/101; PULSE 63
[2017-03-12] MEDS ORDERED: hydrALAzine 20 MG INJ IV ONE (15:00)
[2017-03-12 16:03] VITALS: BP 165/106
--- NOTE | 2017-03-12 16:13 | DS ---
Date/Time of Note Date/Time of Note DATE: 03/12/17 TIME: 16:11 Discharge Summary Admission/Discharge Info Admit Date/Time Mar 10, 2017 at 11:50 Discharge Date/Time Discharge Diagnosis 1. Acute lumbosacral radiculopathy. 2. Type 2 diabetes mellitus. 3. Dyslipidemia. 4. Obesity. 5. Substance abuse. Patient Condition: Stable Consults 1. Ralf Medina MD, Neurosurgery. 2. Max Goodman MD, Pain Management. Procedures Lumbar Spine MRI IMPRESSION: 1. Left posterolateral to far left lateral 5-6 mm disc extrusion at L5-S1 with slight superior migration resulting in compression and posterior displacement of the left L5 nerve root with severe left neural foraminal narrowing as well as slight narrowing of the left lateral recess and contact of the left S1 nerve root. 2. Mild degenerative disc disease at L4-L5 with a broad 4-5 mm central to right posterolateral disc protrusion with narrowing of the right greater than left lateral recesses and moderate central canal narrowing. Lumbar Spine CT IMPRESSION: 1. No acute fracture or traumatic malalignment. 2. Left foraminal/extraforaminal disc extrusion at L5-S1 with probable impingement on the exiting left L5 and traversing left S1 nerve roots. 3. Mild discogenic disease at L4-L5. Hx of Present Illness This is a 36-year-old male with past medical history of type 2 diabetes mellitus not on any medications at home who came to the emergency room complaining of low back pain that was sudden on onset. The patient also verbalized radiation of the pain to the left lower extremity. The patient denied any trauma or falls. The patient denied any bladder or bowel incontinence. The patient underwent a CT scan of the lumbar spine with contrast that showed no acute fracture or traumatic malalignment. However, this showed left foraminal/extraforaminal disc extrusion at L5-S1 with probable impingement on the exiting left L5 and traversing left S1 nerve roots with mild discogenic disease at L4-L5. Provided the patient's history of present illness and the diagnostic findings, a clinical decision was made to admit the patient inpatient setting to have him further evaluated. Hospital Course The patient was admitted to inpatient setting. A neurosurgery consult was obtained. The patient was seen and evaluated by neurosurgery and recommended nonsurgical management. The patient was started on tapering dose of steroids. The patient was started on appropriate pain medications. The patient's back pain improved well with the treatment strategy. The patient was seen and evaluated by physical therapy. Physical therapy recommended home health for home physical therapy evaluation. The patient was also being followed by pain management team for pain medication control. The patient was maintained on gabapentin and Robaxin. The patient has underlying type 2 diabetes mellitus. The patient was not really taking any medications at home for his diabetes. The patient's hemoglobin A1c was found to be 9.9 indicating poor blood glucose control. The patient was maintained on sliding scale insulin along with pre-meal insulin and basal insulin. The patient was seen and evaluated by peer educator. Upon discharge, the patient will be discharged on basal insulin and metformin. The patient was noticed a significant dyslipidemia. Hence the patient was started on low-dose statins since the patient has underlying comorbidities including diabetes and obesity. The patient was noticed to have borderline elevated blood pressure readings. This was deemed to be secondary to his underlying pain. Ideally, the patient needs outpatient follow-up for close monitoring of his blood pressure and initiation of antihypertensive therapy as indicated. The patient is a current drug abuser. The patient's urine drug toxicology was positive for cocaine and amphetamines. The patient was advised on the importance of quitting the use of recreational medications. The patient had a stable, but prolonged hospital course because of the slow recovery of the patient's back pain. The patient was cleared by consultants to be discharged home. Discharge Disposition/Plan 1. Take medications as per prescription. 2. Follow-up with your primary care physician in 1 week. 3. Follow a low-cholesterol, carbohydrate controlled diet. 4. Resume activities as tolerated. 5. Go to the nearest emergency room if you have any sudden onset of lower extremity weakness, bowel or urinary incontinence, or any other unusual signs/ symptoms. At this time I would like to thank all the consultants for seeing the patient and providing clinical recommendations. The patient was seen in collaboration with Dr. Sawyer. Home Meds Active Scripts Prednisone* (Prednisone*) 50 Mg Tablet, 40 MG PO DAILY for 2 Days, TAB Prednisone 40 mg p.o. daily 2 days, then Prednisone 20 mg p.o. daily 2 days, then Prednisone 10 mg p.o. daily 2 days, then Prednisone 5 mg p.o. daily 2 days. Prov:EMILY SOTO NP 11/29/17 Metformin* (Glucophage*) 500 Mg Tab, 500 MG PO BID WITH MEALS, #60 TAB Prov:EMILY SOTO NP 03/12/17 Famotidine* (Pepcid*) 20 Mg Tablet, 20 MG PO BID, #60 TAB Prov:EMILY SOTO NP 03/12/17 Hydrocodone/Acetaminophen ([place] 5-325 Tablet) 1 Each Tablet, 1 EACH PO Q4H for PAIN, #20 TAB Prov:EMILY SOTO NP 03/12/17 Insulin Glargine* (Lantus*) 100 Unit/Ml Soln, 24 UNIT SC DAILY@08 for 30 Days, # 1 VIAL Prov:MEILY SOTO NP 03/12/17 Gabapentin* (Gabapentin*) 300 Mg Capsule, 300 MG PO TID, #90 CAP Prov:EMILY SOTO NP 03/12/17 Atorvastatin Calcium (Atorvastatin Calcium) 20 Mg Tablet, 20 MG PO HS, #30 TAB Prov:EMILY SOTO NP 03/12/17 Methocarbamol* (Methocarbamol*) 500 Mg Tablet, 500 MG PO TID, #45 TAB Prov:EMILY SOTO NP 03/12/17 Follow-up Plan Follow-up with your primary care physician 1 week. Primary Care Provider Raoul Cornejo MD Time spent on discharge: 40 minutes Pending Labs Laboratory Tests Test 03/11/17 17:05 03/11/17 21:34 03/12/17 02:30 03/12/17 04:41 Bedside Glucose 151mg/dL (70-220) 243mg/dL (70-220) 220mg/dL (70-220) White Blood Count 13.110^3/ul (4.8-10.8) Red Blood Count 5.3410^6/ul (4.70-6.10) Hemoglobin 15.6g/dl (14.0-18.0) Hematocrit 45.4% (42.0-52.0) Mean Corpuscular Volume 85.0fl (82.0-101.0) Mean Corpuscular Hemoglobin 29.2pg (29.0-33.0) Mean Corpuscular Hemoglobin Concent 34.4g/dl (32.0-37.0) Red Cell Distribution Width 12.8% (11.5-14.5) Platelet Count 10522^3/UL (140-415) Mean Platelet Volume 10.7fl (7.4-10.4) Neutrophils % 75.7% (39.0-77.0) Lymphocytes % 15.5% (15.0-51.0) Monocytes % 7.5% (0.0-11.0) Eosinophils % 0.5% (0.0-7.0) Basophils % 0.3% (0.0-2.0) Nucleated Red Blood Cells % 0.0/100WBC (0.0-0.0) Neutrophils # 9.910^3/ul (1.6-7.5) Lymphocytes # 2.010^3/ul (0.8-2.9) Monocytes # 1.010^3/ul (0.3-0.9) Eosinophils # 0.110^3/ul (0.0-0.5) Basophils # 0.010^3/ul (0.0-0.1) Nucleated Red Blood Cells # 0.010^3/ul (0.0-0.0) Sodium Level 137mmol/L (135-144) Potassium Level 4.4mmol/L (3.5-5.1) Chloride Level 102mmol/L (97-110) Carbon Dioxide Level 26mmol/L (21-31) Anion Gap 13 (8-16) Blood Urea Nitrogen 20mg/dl (7-20) Creatinine 0.77mg/dl (0.61-1.24) Glucose Level 209mg/dl (70-220) Calcium Level 8.8mg/dl (8.4-10.2) Phosphorus Level 3.9mg/dl (2.5-4.9) Magnesium Level 2.0mg/dl (1.7-2.5) Test 03/12/17 07:44 03/12/17 12:01 Bedside Glucose 183mg/dL (70-220) 219mg/dL (70-220) EMILY SOTO NP Mar 12, 2017 16:13
--- NOTE | 2017-03-13 10:50 | CONS ---
Date/Time of Note Date/Time of Note DATE: 03/09/17 TIME: 15:00 Assessment/Plan Assessment/Plan Additional Assessment/Plan Consultation: 03/09/2017 Requesting physician: Justin Sinha Consulting service: Neurosurgery This is a 36-year-old male with past medical history significant for diabetes who developed acute onset left sided low back pain radiating to the left buttocks down the posterior thigh and the lateral part of the leg stopping at the ankle and at times going to the dorsum of the foot for the past several days. The patient denies any trauma to his low back heavy lifting or extraneous exercise. The patient tells me that he has had some chronic low back pain in the past but denies any prior history of radiating pain down his legs. The patient currently denies any pain radiating down his right lower extremity. He does feel intermittent numbness involving the left lower extremity mainly the left lateral part of the leg and the dorsum of the foot. He denies any weakness of his upper or lower activities. He denies any bowel or bladder dysfunction. Past medical history: As noted above. Social history: The patient smokes several cigarettes a day. He denies use of alcohol, illicit or recreational drugs. Allergies: No known drug allergies Family history: Noncontributory Review of systems: Please see above for pertinent positives and negatives. The patient denies shortness of breath or chest pain. Physical examination: The patient is laying in bed flat and complaining of pain radiating down his left lower extremity. He is awake, alert and oriented 4. His face is symmetric. Sensation to light touch seems to be normal bilateral upper and lower extremities. Deep tendon reflexes are 1+ bilateral upper and lower extremities. Motor strength in bilateral upper extremities is 5 out of 5 proximally and distally. Motor strength in the right lower extremity is 5 out of 5 proximally and distally. Motor strength in left lower extremity proximally and distally is at least 4 out of 5 but it is significantly limited secondary to back pain and lower extremity pain. Straight leg raise more than 10 on the left side causes low back pain and radiating left lower extremity pain. Gait testing has been deferred per patient request secondary to pain. Rectal examination has been deferred per patient request. Imaging: The patient has received an MRI of the lumbar spine without contrast at my request in follow-up to a CT of the lumbar spine that was done. The MRI shows a central and bilateral paracentral L4-L5 disc herniations that causes bilateral lateral recess stenosis putting pressure on the traversing bilateral L5 nerve roots. Patient also has a left L5-S1 paracentral disc herniation that is putting pressure on the traversing left S1 nerve root. There is no evidence of subluxation or fractures noted. Assessment/plan: This is a young male with several day history of new onset low back pain and to a greater extent left lower extremity radiating pain that appears to be more in the left L5 distribution rather than the S1 distribution. The patient does not have any gross weakness or numbness of his upper or lower extremities. As I've explained in great detail to the patient as well as the consulting healthcare provider, Justin Sinha. The patient's symptoms are consistent with acute lumbar radiculopathy secondary to disc herniations i.e. sciatica. The natural history of lumbar radiculopathy secondary to disc herniations is in general quite good meaning that the symptoms can be managed conservatively and nonoperatively for the most part especially given in the acute setting. A small portion of patients that failed conservative management including treatment with NSAIDs such as ibuprofen/Motrin, Medrol Dosepak and interventional pain management i.e. lumbar epidural steroid injections, msy then require neurosurgical intervention including lumbar laminectomy and microdiscectomy. However, at this point there is no acute neurosurgical intervention indicated. Patient will be started on Medrol Dosepak as well as NSAID medications. The patient can then be followed up by interventional pain management on an outpatient basis for further evaluation regarding possible need for lumbar epidural steroid injection. The patient can follow-up with neurosurgery over the next 4-6 weeks for further evaluation and his progress. Should the patient develop any gross weakness of his lower extremities he is to return to the emergency department. BRITTNI DEMARCO MD Mar 13, 2017 10:50
== END 2017-03-12 16:09 | disposition home health service (06) | DRG 552 ==
LOC: E/R 16:41 → PP2 18:55 → OBSVTOIN 03-10 11:50
PROVIDERS: ADMIT Internal Medicine; ATTEND Internal Medicine
DX: M51.17 Intervertebral disc disorders with radiculopathy, lumbosacral region (principal); F14.10 Cocaine abuse, uncomplicated; E11.9 Type 2 diabetes mellitus without complications; E66.9 Obesity, unspecified; Z68.35 Body mass index [BMI] 35.0-35.9, adult; F15.10 Other stimulant abuse, uncomplicated; E78.5 Hyperlipidemia, unspecified; F17.200 Nicotine dependence, unspecified, uncomplicated
CPT/HCPCS: 72131; 72148; 80048; 80053; 80061; 80306; 80307; 81003; 82962; 83036; 83735; 84100; 85025; 96374; 96375; 96376; G0378; J0360; J1100; J1170; J1815; J1885; J3010; J7509

== ENCOUNTER 2017-11-05 09:00 | Day surgery (SDC) | END 2017-11-05 16:40 | disposition home or self-care (01) ==